=== PATIENT | female | born 1930 | race Caucasian/White ===

== ENCOUNTER 2017-10-17 18:52 | Inpatient (IN) | payer OTHER ==
[~2017-10-17] VITALS: Ht 152.4 cm; Wt 54.9 kg
[~2017-10-17 18:52] MED LIST: APAP500 MG PO; ASPIR-LOW81 M1 PO; COL100 PO; DOC-Q-LACE PO; GABAPENTIN100 M2 PO; HYD25 PO; HYDROCHLOROTHIA25 MG PO; IBUPROFEN400 MG PO; LEVOTHYROXINE0.05 M2 PO; MOT600 PO; NORCO1 TA2 PO; PAN PO; PANCRELIPASE PO; PLA75 PO; SIMVASTATIN20 M1 PO; SULFAMETHOXAZOLE
[2017-10-17 20:23] LABS: BASOPHIL % 0.8 % (0-2); PLATELET COUNT 284 x10^3mcL (130-400); RED CELL DISTRIBUTION WIDTH 13.1 % (11.5-14.5)
[2017-10-17 20:33] LABS: ALBUMIN 3.9 g/dL (3.4-5.0); ALKALINE PHOSPHATASE 82 U/L (46-116); ALT/SGPT 21 U/L (14-59); AST/SGOT 16 U/L (15-37); BILIRUBIN TOTAL 0.45 mg/dL (0.20-1.00); CALCIUM 9.2 mg/dL (8.5-10.1); CARBON DIOXIDE 31.6 mmol/L (21-32); CHLORIDE SERUM 93 mmol/L (98-107); CREATININE SERUM 0.7 mg/dL (0.6-1.0); GLUCOSE SERUM 122 mg/dL (74-106); LIPASE 110 IU/L (73-393); SODIUM SERUM 134 mmol/L (136-145); TOTAL PROTEIN, SERUM 7.7 g/dL (6.4-8.2)
[2017-10-17 20:35] LABS: POTASSIUM SERUM 2.5 mmol/L (3.5-5.1)
[2017-10-18 00:06] LABS: FREE T4 1.21 ng/dL (0.76-1.46); FREE THYROXINE INDEX 3.6 ug/dL (1.4-4.5)
[2017-10-18 00:26] LABS: CHOLESTEROL/HDL RATIO 3.9; MAGNESIUM 2.3 mg/dL (1.8-2.4); PHOSPHOROUS 3.5 mg/dL (2.5-4.9)
[2017-10-18 00:31] VITALS: BP 170/66
[2017-10-18 02:43] LABS: T3 TOTAL 1.06 ng/mL
[2017-10-18 05:14] VITALS: BP 136/63
[2017-10-18 07:10] LABS: BASOPHIL % 0.6 % (0-2); PLATELET COUNT 273 x10^3mcL (130-400); RED CELL DISTRIBUTION WIDTH 13.8 % (11.5-14.5)
[2017-10-18 07:30] LABS: CALCIUM 8.2 mg/dL (8.5-10.1); CARBON DIOXIDE 29.7 mmol/L (21-32); CHLORIDE SERUM 101 mmol/L (98-107); CREATININE SERUM 0.7 mg/dL (0.6-1.0); GLUCOSE SERUM 80 mg/dL (74-106); POTASSIUM SERUM 3.2 mmol/L (3.5-5.1); SODIUM SERUM 139 mmol/L (136-145)
[2017-10-18 08:50] VITALS: BP 126/60
[2017-10-18 13:45] VITALS: BP 134/58
[2017-10-18 13:58] VITALS: Ht 152.4 cm; Wt 54.9 kg
[2017-10-18 16:00] LABS: UA SPECIFIC GRAVITY <=1.005 (1.005-1.035); microscopic required? YES; urine erythrocyte NEGATIVE (NEGATIVE)
[2017-10-18 17:56] VITALS: BP 139/79
[2017-10-18 21:13] VITALS: BP 132/72
[2017-10-19 05:03] VITALS: BP 146/50
[2017-10-19 07:06] LABS: BASOPHIL % 0.2 % (0-2); PLATELET COUNT 250 x10^3mcL (130-400); RED CELL DISTRIBUTION WIDTH 14.2 % (11.5-14.5)
[2017-10-19 07:16] LABS: CALCIUM 8.5 mg/dL (8.5-10.1); CARBON DIOXIDE 25.7 mmol/L (21-32); CHLORIDE SERUM 102 mmol/L (98-107); CREATININE SERUM 0.6 mg/dL (0.6-1.0); GLUCOSE SERUM 91 mg/dL (74-106); MAGNESIUM 2.1 mg/dL (1.8-2.4); PHOSPHOROUS 2.8 mg/dL (2.5-4.9); POTASSIUM SERUM 3.4 mmol/L (3.5-5.1); SODIUM SERUM 138 mmol/L (136-145)
[2017-10-19 10:00] VITALS: BP 137/59
[2017-10-19 13:59] VITALS: BP 140/72
[2017-10-19 17:29] VITALS: BP 152/86
[2017-10-19 21:33] VITALS: BP 140/75
[2017-10-20 05:17] VITALS: BP 128/70
[2017-10-20 06:47] LABS: BASOPHIL % 0.1 % (0-2); PLATELET COUNT 281 x10^3mcL (130-400); RED CELL DISTRIBUTION WIDTH 13.6 % (11.5-14.5)
[2017-10-20 07:11] LABS: CARBON DIOXIDE 26.6 mmol/L (21-32); CHLORIDE SERUM 103 mmol/L (98-107); CREATININE SERUM 0.6 mg/dL (0.6-1.0); GLUCOSE SERUM 93 mg/dL (74-106); MAGNESIUM 2.1 mg/dL (1.8-2.4); PHOSPHOROUS 3.5 mg/dL (2.5-4.9); SODIUM SERUM 139 mmol/L (136-145)
[2017-10-20 07:15] LABS: POTASSIUM SERUM 2.6 mmol/L (3.5-5.1)
[2017-10-20 09:38] VITALS: BP 136/61
[2017-10-20] MEDS ORDERED: LEVAQUIN750 MG PO (09:58)
[2017-10-20] MEDS ORDERED: LAC PO (10:00)
[2017-10-20] MEDS ORDERED: METAMUCIL FIBE3.4 GM PO (10:24)
[2017-10-20] MEDS ORDERED: PANTOPRAZOLE SO40 M1 PO (10:28)
[2017-10-20 11:54] VITALS: BP 136/61
[2017-10-20 13:48] VITALS: BP 126/64
[2017-10-20 14:54] LABS: CALCIUM 8.5 mg/dL (8.5-10.1); CARBON DIOXIDE 25.7 mmol/L (21-32); CHLORIDE SERUM 102 mmol/L (98-107); CREATININE SERUM 0.7 mg/dL (0.6-1.0); GLUCOSE SERUM 165 mg/dL (74-106); SODIUM SERUM 138 mmol/L (136-145)
[2017-10-20 15:02] LABS: POTASSIUM SERUM 2.8 mmol/L (3.5-5.1)
[2017-10-20 16:54] VITALS: BP 117/63
[2017-10-20 19:19] LABS: CALCIUM 8.8 mg/dL (8.5-10.1); CARBON DIOXIDE 27.6 mmol/L (21-32); CHLORIDE SERUM 100 mmol/L (98-107); CREATININE SERUM 0.7 mg/dL (0.6-1.0); GLUCOSE SERUM 106 mg/dL (74-106); POTASSIUM SERUM 3.4 mmol/L (3.5-5.1); SODIUM SERUM 138 mmol/L (136-145)
== END 2017-10-20 22:13 | disposition home or self-care (01) | DRG 244 ==
LOC: ED 18:52 → DU 22:30 → MU 22:30 → DU 10-18 00:13 → MU 10-19 05:11
PROVIDERS: Emergency Medicine; Family Medicine; Family Medicine Sports Medicine; Internal Medicine
PROC: 0DB68ZX Excision of Stomach, Via Natural or Artificial Opening Endoscopic, Diagnostic (ICD-10-PCS; principal; 2017-10-19 12:45)
PROC: 0DJD8ZZ Inspection of Lower Intestinal Tract, Via Natural or Artificial Opening Endoscopic (ICD-10-PCS; 2017-10-20)
DX: K57.30 Diverticulosis of large intestine without perforation or abscess without bleeding (principal); N17.0 Acute kidney failure with tubular necrosis; I10 Essential (primary) hypertension; E03.9 Hypothyroidism, unspecified; E78.5 Hyperlipidemia, unspecified; E87.6 Hypokalemia; K20.9 Esophagitis, unspecified; K29.70 Gastritis, unspecified, without bleeding
CPT/HCPCS: 43235; 45378; 83880; 84439; 90732; J1200; J1610; J1885; J2250; J2310; J2405; J2765; J3010; J3480; J3490; J7030; J7040; Q0092

== ENCOUNTER 2018-08-15 07:19 | Emergency (ER) | payer OTHER ==
[~2018-08-15] VITALS: Ht 149.9 cm; Wt 58.5 kg
[~2018-08-15 07:19] MED LIST changes: +LAC PO; +LEVAQUIN750 MG PO; +METAMUCIL FIBE3.4 GM PO; +PANTOPRAZOLE SO40 M1 PO
[2018-08-15 07:32] VITALS: Ht 149.9 cm; Wt 58.5 kg
[2018-08-15 11:19] VITALS: BP 131/79
== END 2018-08-15 12:06 | disposition home or self-care (01) ==
LOC: ED 07:19
DX: J20.9 Acute bronchitis, unspecified (principal); I10 Essential (primary) hypertension; M19.90 Unspecified osteoarthritis, unspecified site; E03.9 Hypothyroidism, unspecified
CPT/HCPCS: 87804; J0696